=== PATIENT | female | born 1970 | race Caucasian/White ===

== ENCOUNTER 2019-06-01 13:50 | Outpatient (CLI) | payer BC, SELFPAY ==
--- NOTE | ~2019-06-01 | MM_ITS ---
EXAMINATION: MM screening [facility] w noem[facility] HISTORY: Screening mammogram TECHNIQUE: Craniocaudal and mediolateral oblique 3-D tomosynthesis images were obtained and synthetic 2-D images were generated. CAD analysis was submitted and interpreted. COMPARISON: 05/28/2018, 05/27/2017, 05/14/2016 BREAST PARENCHYMAL COMPOSITION: The breasts are heterogeneously dense, which may obscure small masses . FINDINGS: Scattered benign-appearing calcifications are present. There is no evidence of suspicious m ass, calcification, or architectural distortion to suggest malignancy in either breast. There has bee n no suspicious interval change. IMPRESSION: 1. No mammographic evidence of malignancy. 2. Recommend routine screening mammography in one year. BI-RADS Category 2: Benign finding(s). Reviewed, dictated and finalized at location A. TTER
== END 2019-06-01 13:51 | disposition home or self-care (01) ==
LOC: ANHIMG 13:56
DX: Z12.31 Encounter for screening mammogram for malignant neoplasm of breast (principal)
CPT/HCPCS: 77063; 77067

== ENCOUNTER 2020-07-09 15:55 | Outpatient (CLI) | payer BC, SELFPAY ==
--- NOTE | ~2020-07-09 | MM_ITS ---
EXAMINATION: MM screening [facility] BI w noemí HISTORY: Screening mammogram TECHNIQUE: Craniocaudal and mediolateral oblique 3-D tomosynthesis images were obtained and synthetic 2-D images were generated. CAD analysis was submitted and interpreted. COMPARISON: 06/01/2019, 05/28/2018, 05/27/2017 BREAST PARENCHYMAL COMPOSITION: The breasts are heterogeneously dense, which may obscure small masses . FINDINGS: There is no evidence of suspicious mass, calcification, or architectural distortion to sugg est malignancy in either breast. There has been no suspicious interval change. IMPRESSION: 1. No mammographic evidence of malignancy. 2. Recommend routine screening mammography in one year. BI-RADS Category 1: Negative Reviewed, dictated and finalized at location A.
== END 2020-07-09 15:56 | disposition home or self-care (01) ==
LOC: ANHIMG 15:57
PROVIDERS: PCP Internal Medicine; Visit Provider Internal Medicine
DX: Z12.31 Encounter for screening mammogram for malignant neoplasm of breast (principal)
CPT/HCPCS: 77063; 77067

== ENCOUNTER 2020-07-25 11:30 | Outpatient (CLI) | payer BC, SELFPAY | END 2020-07-25 11:31 | disposition home or self-care (01) | LOC: ANHCOVIDVC 11:30 | PROVIDERS: PCP Internal Medicine | DX: Z23 Encounter for immunization (principal) | CPT/HCPCS: 0001A; 91300 ==

== ENCOUNTER 2020-08-15 11:29 | Outpatient (CLI) | payer BC, SELFPAY | END 2020-08-15 11:30 | disposition home or self-care (01) | LOC: ANHCOVIDVC 11:29 | PROVIDERS: PCP Internal Medicine | DX: Z23 Encounter for immunization (principal) | CPT/HCPCS: 0002A; 91300 ==

== ENCOUNTER → 2021-03-12 08:59 | Outpatient (CLI) | payer OTHER, SELFPAY ==
[2021-03-12 13:20] LABS: Influenza Control Positive
[2021-03-12 20:05] LABS: SARS-CoV-2 RNA PCR Negative
== END ==
PROVIDERS: PCP Internal Medicine; Visit Provider Internal Medicine
DX: Z20.822 Contact with and (suspected) exposure to COVID-19 (principal)
CPT/HCPCS: 87804; C9803; U0003; U0005

== ENCOUNTER 2021-11-14 08:17 | Outpatient (CLI) | payer OTHER, SELFPAY ==
--- NOTE | ~2021-11-14 | MM_ITS ---
EXAMINATION: MM screening [facility] w noem[facility] HISTORY: Screening TECHNIQUE: Craniocaudal and mediolateral oblique 3-D tomosynthesis images were obtained and synthetic 2-D images were generated. CAD analysis was submitted and interpreted. COMPARISON: Comparison to multiple prior studies sequentially, with oldest reviewed study dated 04/2016. BREAST PARENCHYMAL COMPOSITION: The breasts are heterogenously dense, which may obscure small masses FINDINGS: There is no evidence of suspicious mass, calcification, or architectural distortion to sugg est malignancy in either breast. There has been no suspicious interval change. IMPRESSION: 1. No mammographic evidence of malignancy. 2. Recommend routine screening mammography in one year. BI-RADS Category 1: Negative Reviewed, dictated and finalized at location A.
== END 2021-11-14 08:18 | disposition home or self-care (01) ==
PROVIDERS: PCP Internal Medicine
DX: Z12.31 Encounter for screening mammogram for malignant neoplasm of breast (principal)
CPT/HCPCS: 77063; 77067

== ENCOUNTER 2023-03-11 08:32 | Outpatient (CLI) | payer OTHER, SELFPAY ==
--- NOTE | ~2023-03-11 | MM_ITS ---
EXAMINATION: MM screening [facility] w noemí HISTORY: Screening mammogram TECHNIQUE: Craniocaudal and mediolateral oblique 3-D tomosynthesis images were obtained and synthetic 2-D images were generated. CAD analysis was submitted and interpreted. COMPARISON: 11/2021, 07/09/2020, bilateral screening mammogram examinations BREAST PARENCHYMAL COMPOSITION: The breasts are heterogeneously dense, which may obscure small masses . FINDINGS: There is no evidence of suspicious mass, calcification, or architectural distortion to sugg est malignancy in either breast. There has been no suspicious interval change. IMPRESSION: 1. No mammographic evidence of malignancy. 2. Recommend routine screening mammography in one year. BI-RADS Category 1: Negative Reviewed, dictated and finalized at location A. ISTRY INTERN
--- NOTE | ~2023-03-11 | DEXA_ITS ---
Bone Density Report Name: SENA PHILIP Age: 52 Sex: Female Ethnicity: White Date of : 1970 Indication: postmenopausal; screening for osteoporosis; height loss; cancer; Referring Provider: UNKNOWN, UNKNOWN Study: Bone densitometry was performed. Exam Date: March 11, 2023 Accession number: [id number] Bone Density: Region BMD T-score Z-score Classification AP Spine(L1-L4) 1.281 2.1 3.0 Normal Femoral Neck (Left) 0.940 0.8 1.7 Normal Total Hip (Left) 1.101 1.3 1.9 Normal Femoral Neck (Right) 0.868 0.2 1.1 Normal Total Hip (Right) 1.149 1.7 2.3 Normal Total Hip Mean 1.125 1.5 2.1 Normal World Health Organization criteria for BMD impression classify patients as: Normal (T-score at or above -1.0), Osteopenia (T-score between -1.0 and -2.5), or Osteoporosis (T-score at or below -2.5). 10-year Fracture Risk: FRAX not reported because: All T-scores for Spine Total, Hip Total, Femoral Neck at or above -1.0 Clinical Information Provided by Patient: Has used the following medications: Vitamin D, Calcium Has the following medical conditions: Cancer Patient maximum height was 68 Menopause Age: 48 Drinks caffeinated beverages Onset of menses at age 12 Number of children 2 Impression: The patient has normal bone mass. Discussion: BONE DENSITY IS ABOVE THE MINIMUM DESIRABLE LEVEL AT ALL SKELETAL SITES TESTED. This patient?s bone mineral density is above the minimum desirable level (T-score -1.0 or better) at all sites measured. The patient should follow a healthful lifestyle (good nutrition with adequate calcium and vitamin D, and appropriate weight-bearing exercise). Follow-Up: Consider repeating this study in 5 years or sooner if there is some new clinical indication. Reported by: BONY on 03/11/2023 9:01:00 AM. Reviewed, dictated and finalized at location AHaylee COOMBS
== END 2023-03-11 08:33 | disposition home or self-care (01) ==
LOC: ANHIMG 08:37
PROVIDERS: PCP Internal Medicine
DX: Z12.31 Encounter for screening mammogram for malignant neoplasm of breast (principal); Z13.820 Encounter for screening for osteoporosis; Z78.0 Asymptomatic menopausal state
CPT/HCPCS: 77063; 77067; 77080

== ENCOUNTER 2024-02-18 15:03 | Outpatient (CLI) | payer OTHER, SELFPAY ==
--- NOTE | ~2024-02-18 | XR_ITS ---
AP view of the pelvis and AP and lateral views of the bilateral hips Clinical history: Pain Findings: No acute fracture or dislocation is seen. Osseous alignment is anatomic. There is mild dege nerative change of the left hip joint, with prominent bony spurring at the superolateral acetabular m argin. Right hip joint intact. Soft tissues are unremarkable. 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 Reviewed, dictated and finalized at location M. 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
== END 2024-02-18 15:04 | disposition home or self-care (01) ==
LOC: MICIMG 15:04
PROVIDERS: PCP Internal Medicine; Visit Provider Chiropractor
DX: M16.12 Unilateral primary osteoarthritis, left hip (principal); M25.551 Pain in right hip; M53.3 Sacrococcygeal disorders, not elsewhere classified
CPT/HCPCS: 73521

== ENCOUNTER 2024-05-13 07:27 | Outpatient (CLI) | payer OTHER, SELFPAY ==
--- NOTE | ~2024-05-13 | MM_ITS ---
EXAMINATION: MM screening jacobo BI w noemí HISTORY: Screening TECHNIQUE: Craniocaudal and mediolateral oblique 3-D tomosynthesis images were obtained and synthetic 2-D images were generated. CAD analysis was submitted and interpreted. COMPARISON: Comparison to multiple prior studies sequentially, with oldest reviewed study dated 05/27. BREAST PARENCHYMAL COMPOSITION: Not dense: There are scattered areas of fibroglandular density. FINDINGS: There is no evidence of suspicious mass, calcification, or architectural distortion to sugg est malignancy in either breast. There has been no suspicious interval change. IMPRESSION: 1. No mammographic evidence of malignancy. 2. Recommend routine screening mammography in one year. BI-RADS Category 1: Negative Reviewed, dictated and finalized at location A. [facility]
--- OUTSIDE RECORDS SUMMARY | 2024-05-13 07:35 | XMS_ITS | Data Portability ---
[facility] [address] [place] [address] Care Team Providers Care Architectural Practice Manager Name Role Phone JULIOCESAR HYDE Primary Care Provider Unavailab le Assessment Encounter Date Assessment Date Assessment LastModified by Organization Details LastModified Time 08/20/2023 08/20/2023 Mammogram UTD at [place] [facility] pap smear UTD: DR. Arriola at [facility] colonoscopy 2019. due for annual labs. [email or web address] Not available 08/20/2023 10:01:01 Plan of Treatment Reminders Order Date Submit Date Provider Last Modified By Organization Details Last Modified Time Details Appointments ANY 15 2024 08:00A M MINDY Ramirez Not available Not available Not available Lab TSH + free T4, serum 2023 024 ROJELIO [facility], [address], [address], [place], [address], 09/05/2023 11:13:22 CMP, serum or plasma 2023 024 ROJELIO Labma[facility], [address], [address], [place], [address], 09/05/2023 11:13:22 CBC w/ auto diff 2023 024 ROJELIO [facility], [address], [address], [place], [address], 09/05/2023 11:13:24 vitamin B12 + folate, serum or blood 2023 024 ROJELIO Labmuareen, [address], [address], [place], [address], 09/05/2023 11:13:23 lipid panel, serum 2023 024 [facility], [address], [address], [place], [address], 09/05/2023 11:13:21 HbA1c (hemoglob in A1c), blood 2023 024 [facility], [address] Andrie[address], [address], [place], [address], 09/05/2023 11:13:24 Referral None recorded. Procedures None recorded. Surgeries None recorded. Imaging None recorded. Medication Orders amlodipin e 2.5 mg tablet 2023 024 [id number], [address], [place], [id number], 03/01/2024 12:13:10 amlodipin e 2.5 mg tablet 2023 024 [id number], [address], [place], [id number], 03/01/2024 12:38:53 Patient TargetsNo targets recorded. Patient InstructionsNo instructions recorded. Reason for Referral None Reported. Results Created Date Observation Date Name Description Value Unit Range Abnormal Flag Note LastModifiedBy Organization Detail LastModifiedTime 09/04/1909/05/2023 LIPID PANEL W/ CHOL/ HDL RATIO cholesterol, total 212 mg/dL 100-19 9 above high normal Not Available [facility] ([facility]) [address], [place], [address], 09/05/2023 11:13:21 09/04/1909/05/2023 LIPID PANEL W/ CHOL/ HDL RATIO triglyceride s 85 mg/dL 0-149 Not Available [facility] ([facility]) [address] [facility] [address], [place], [address], 09/05/2023 11:13:21 09/04/19 24 09/05/2023 LIPID PANEL W/ CHOL/ HDL RATIO HDL cholesterol 62 mg/dL >39 Not Available [facility] ([facility]) [address] [place], [address], 09/05/2023 11:13:21 09/04/19 24 09/05/2023 LIPID PANEL W/ CHOL/ HDL RATIO VLDL cholesterol antonio 15 mg/dL 5-40 Not Available [facility] ([facility]) [address] [place], [address], 09/05/2023 11:13:21 09/04/1909/05/2023 LIPID PANEL W/ CHOL/ HDL RATIO LDL chol calc ([facility]) 135 mg/dL 0-99 above high normal Not Available [facility] ([facility]) [address] [place], [address], 09/05/2023 11:13:21 09/04/19 24 09/05/2023 LIPID PANEL W/ CHOL/ HDL RATIO T. chol/HDL ratio 3.4 ratio 0.0-4. 4 T. Chol/ HDL Ratio Men Women 1/2 Avg.R isk 3.4 3.3 Avg.R isk 5.0 4.4 2X Avg.R isk 9.6 7.1 3X Avg.R isk 23.4 11.0 Not Available [facility] ([facility]) [address] [place], [address], 09/05/2023 11:13:21 09/04/19 24 09/05/2023 TSH+F REE T4 TSH 1.080 uIU/m L 0.450- 4.500 Not Available [facility] ([facility]) [address] [place], [address], 09/05/2023 11:13:22 09/04/19 24 09/05/2023 TSH+F REE T4 T4,free(dire ct) 1.11 NG/dL 0.82-1 .77 Not Available [facility] ([facility]) [address] [facility] [address], [place], [address], 09/05/2023 11:13:22 09/04/19 24 09/05/2023 COMP. METAB OLIC PANEL (14) glucose 85 mg/dL 70-99 Not Available [facility] ([facility]) [address] [place], [address], 09/05/2023 11:13:22 09/04/19 24 09/05/2023 COMP. METAB OLIC PANEL (14) BUN 16 mg/dL 6-24 Not Available [facility] ([facility]) [address] [place], [address], 09/05/2023 11:13:22 09/04/19 24 09/05/2023 COMP. METAB OLIC PANEL (14) creatinine 0.75 mg/dL 0.57-1 .00 Not Available [facility] ([facility]) [address] [facility] [address], [place], [address], 09/05/2023 11:13:22 09/04/19 24 09/05/2023 COMP. METAB OLIC PANEL (14) eGFR 95 mL/mi n/1.7 3 >59 Not Available [facility] ([facility]) [address] [facility] [address], [place], [address], 09/05/2023 11:13:22 09/04/19 24 09/05/2023 COMP. METAB OLIC PANEL (14) BUN/creatini ne ratio 21 9-23 Not Available [facility] ([facility]) [address] [place], [address], 09/05/2023 11:13:22 09/04/19 24 09/05/2023 COMP. METAB OLIC PANEL (14) sodium 140 mmol/ L 134-14 4 Not Available [facility] ([facility]) [address] [place], [address], 09/05/2023 11:13:22 09/04/19 24 09/05/2023 COMP. METAB OLIC PANEL (14) potassium 4.8 mmol/ L 3.5-5. 2 Not Available [facility] ([facility]) [address] [facility] [address], [place], [address], 09/05/2023 11:13:22 09/04/19 24 09/05/2023 COMP. METAB OLIC PANEL (14) chloride 102 mmol/ L 96-106 Not Available [facility] ([facility]) [address] [facility] [address], [place], [address], 09/05/2023 11:13:22 09/04/19 24 09/05/2023 COMP. METAB OLIC PANEL (14) carbon dioxide, total 24 mmol/ L 20-29 Not Available [facility] ([facility]) [address] [place], [address], 09/05/2023 11:13:22 09/04/19 24 09/05/2023 COMP. METAB OLIC PANEL (14) calcium 9.8 mg/dL 8.7-10 .2 Not Available [facility] ([facility]) [address] [place], [address], 09/05/2023 11:13:22 09/04/19 24 09/05/2023 COMP. METAB OLIC PANEL (14) protein, total 6.9 g/dL 6.0-8. 5 Not Available [facility] ([facility]) [address] [facility] [place], [address], 09/05/2023 11:13:22 09/04/19 24 09/05/2023 COMP. METAB OLIC PANEL (14) albumin 4.6 g/dL 3.8-4. 9 Not Available [facility] ([facility]) [address] [facility] [place], [address], 09/05/2023 11:13:22 09/04/19 24 09/05/2023 COMP. METAB OLIC PANEL (14) globulin, total 2.3 g/dL 1.5-4. 5 Not Available [facility] ([facility]) [address] [place], [address], 09/05/2023 11:13:22 09/04/19 24 09/05/2023 COMP. METAB OLIC PANEL (14) A/G ratio 2.0 1.2-2. 2 Not Available [facility] ([facility]) [address] [place], [address], 09/05/2023 11:13:22 09/04/19 24 09/05/2023 COMP. METAB OLIC PANEL (14) bilirubin, total 0.3 mg/dL 0.0-1. 2 Not Available [facility] ([facility]) [address] [place], [address], 09/05/2023 11:13:22 09/04/19 24 09/05/2023 COMP. METAB OLIC PANEL (14) alkaline phosphatase 51 IU/L 44-121 Not Available [facility] ([facility]) [address] [place], [address], 09/05/2023 11:13:22 09/04/19 24 09/05/2023 COMP. METAB OLIC PANEL (14) AST (SGOT) 18 IU/L 0-40 Not Available [facility] ([facility]) [address] [place], [address], 09/05/2023 11:13:22 09/04/19 24 09/05/2023 COMP. METAB OLIC PANEL (14) ALT (SGPT) 17 IU/L 0-32 Not Available [facility] ([facility]) [address] [place], [address], 09/05/2023 11:13:22 09/04/19 24 09/05/2023 VITAM IN B12 AND FOLAT E vitamin B12 >2000 pg/mL 232-12 45 above high normal Not Available [facility] ([facility]) [address] [facility] [address], [place], [address], 09/05/2023 11:13:23 09/04/19 24 09/05/2023 VITAM IN B12 AND FOLAT E folate (folic acid), serum 17.9 NG/mL >3.0 A serum folat e bill ntrat ion of less than 3.1 ng/mL is consi dered to repre sent clini antonio defic iency . Not Available [facility] ([facility]) [address] [facility] [address], [place], [address], 09/05/2023 11:13:23 09/04/1909/05/2023 HEMOG LOBIN A1C hemoglobin A1C 5.5 % 4.8-5. 6 Predi abete s: 5.7 - 6.4 Diabe juliana: >6.4 Glyce dawood contr ol for adult s with diabe juliana: <7.0 Not Available [facility] ([facility]) [address] [facility] [address], [place], [address], 09/05/2023 11:13:23 09/04/19 24 09/05/2023 CBC WITH DIFFE RENTI AL/PL ATELE T WBC 4.5 x10e3 /uL 3.4-10 .8 Not Available [facility] ([facility]) [address] [place], [address], 09/05/2023 11:13:24 09/04/19 24 09/05/2023 CBC WITH DIFFE RENTI AL/PL ATELE T RBC 4.20 x10e6 /uL 3.77-5 .28 Not Available [facility] ([facility]) [address] [place], [address], 09/05/2023 11:13:24 09/04/19 24 09/05/2023 CBC WITH DIFFE RENTI AL/PL ATELE T hemoglobin 13.8 g/dL 11.1-1 5.9 Not Available [facility] ([facility]) [address] [facility] [address], [place], [address], 09/05/2023 11:13:24 09/04/19 24 09/05/2023 CBC WITH DIFFE RENTI AL/PL ATELE T hematocrit 41.5 % 34.0-4 6.6 Not Available [facility] ([facility]) [address] [facility] [address], [place], [address], 09/05/2023 11:13:24 09/04/19 24 09/05/2023 CBC WITH DIFFE RENTI AL/PL ATELE T MCV 99 fL 79-97 above high normal Not Available [facility] ([facility]) [address] [facility] [address], [place], [address], 09/05/2023 11:13:24 09/04/19 24 09/05/2023 CBC WITH DIFFE RENTI AL/PL ATELE T MCH 32.9 pg 26.6-3 3.0 Not Available [facility] ([facility]) [address] [facility] [address], [place], [address], 09/05/2023 11:13:24 09/04/19 24 09/05/2023 CBC WITH DIFFE RENTI AL/PL ATELE T MCHC 33.3 g/dL 31.5-3 5.7 Not Available [facility] ([facility]) [address] [facility] [address], [place], [address], 09/05/2023 11:13:24 09/04/19 24 09/05/2023 CBC WITH DIFFE RENTI AL/PL ATELE T RDW 12.7 % 11.7-1 5.4 Not Available [facility] ([facility]) [address] [facility] [address], [place], [address], 09/05/2023 11:13:24 09/04/19 24 09/05/2023 CBC WITH DIFFE RENTI AL/PL ATELE T platelets 269 x10e3 /uL 150-45 0 Not Available [facility] ([facility]) [address] [facility] [address], [place], [address], 09/05/2023 11:13:24 09/04/19 24 09/05/2023 CBC WITH DIFFE RENTI AL/PL ATELE T neutrophils 50 % notest ab. Not Available [facility] ([facility]) [address] [facility] [address], [place], [address], 09/05/2023 11:13:24 09/04/19 24 09/05/2023 CBC WITH DIFFE RENTI AL/PL ATELE T lymphs 40 % notest ab. Not Available [facility] ([facility]) [address] [facility] [address], [place], [address], 09/05/2023 11:13:24 09/04/19 24 09/05/2023 CBC WITH DIFFE RENTI AL/PL ATELE T monocytes 10 % notest ab. Not Available [facility] ([facility]) [address] [facility] [address], [place], [address], 09/05/2023 11:13:24 09/04/19 24 09/05/2023 CBC WITH DIFFE RENTI AL/PL ATELE T eos 0 % notest ab. Not Available [facility] ([facility]) [address] [facility] [address], [place], [address], 09/05/2023 11:13:24 09/04/19 24 09/05/2023 CBC WITH DIFFE RENTI AL/PL ATELE T basos 0 % notest ab. Not Available [facility] ([facility]) [address] [facility] [address], [place], [address], 09/05/2023 11:13:24 09/04/19 24 09/05/2023 CBC WITH DIFFE RENTI AL/PL ATELE T neutrophils (absolute) 2.2 x10e3 /uL 1.4-7. 0 Not Available [facility] ([facility]) [address] [facility] [address], [place], [address], 09/05/2023 11:13:24 09/04/19 24 09/05/2023 CBC WITH DIFFE RENTI AL/PL ATELE T lymphs (absolute) 1.8 x10e3 /uL 0.7-3. 1 Not Available [facility] ([facility]) [address] [facility] [address], [place], [address], 09/05/2023 11:13:24 09/04/19 24 09/05/2023 CBC WITH DIFFE RENTI AL/PL ATELE T monocytes(ab solute) 0.5 x10e3 /uL 0.1-0. 9 Not Available [facility] ([facility]) [address] [facility] [address], [place], [address], 09/05/2023 11:13:24 09/04/19 24 09/05/2023 CBC WITH DIFFE RENTI AL/PL ATELE T eos (absolute) 0.0 x10e3 /uL 0.0-0. 4 Not Available [facility] ([facility]) [address] [facility] [address], [place], [address], 09/05/2023 11:13:24 09/04/19 24 09/05/2023 CBC WITH DIFFE RENTI AL/PL ATELE T baso (absolute) 0.0 x10e3 /uL 0.0-0. 2 Not Available [facility] ([facility]) [address] [facility] [address], [place], [address], 09/05/2023 11:13:24 09/04/19 24 09/05/2023 CBC WITH DIFFE RENTI AL/PL ATELE T immature granulocytes 0 % notest ab. Not Available [facility] ([facility]) [address] [facility] [address], [place], [address], 09/05/2023 11:13:24 09/04/19 24 09/05/2023 CBC WITH DIFFE RENTI AL/PL ATELE T immature grans (abs) 0.0 x10e3 /uL 0.0-0. 1 Not Available [facility] ([facility]) [address] [facility] [address], [place], [address], 09/05/2023 11:13:24 Result Notes None recorded. Problems Name Problem SNOMED Code Status Onset Date Resolution Date Notes Provider Name and Address Organization Details Recorded Time Vertigo 675574885 Active 2023 MINDY Ramirez Attn: Araceli meredith,[address], [place], [address], [facility] 4 23:20:04 Elevated blood-pressure reading without diagnosis of hypertension 351927523 Active 2023 MINDY Ramirez Attn: Araceli meredith,[address], [place], [address], [facility] 4 23:20:05 Long-term drug therapy Active 2023 MINDY Ramirez Attn: Araceli meredith,[address], [place], [address], [facility] 4 18:52:41 Problem Notes None recorded. Medical Equipment None Reported. Allergies No known drug allergies Medications Name Sig Start Date Stop Date Status Note LastModified by Organization Details LastModified Time famotidine 40 mg tablet Take 1 tablet every day by oral route for 90 days. active acid reflux Not Available Not Available Not Available amlodipine 2.5 mg tablet TAKE 1 TABLET BY MOUTH EVERY DAY 2024 active Not Available Not Available Not Avai lable ciclopirox 8 % topical solution APPLY TO TOENAILS EVERY DAY 08/19 completed Not Available Not Available Not Available amoxicilli n 875 mg tablet TAKE 1 TABLET BY MOUTH EVERY 12 HOURS 03/01 completed Not Available Not Available Not Available meclizine 25 mg tablet TAKE 1 TABLET BY MOUTH THREE TIMES DAILY NEEDED FOR VERTIGO active Not Available Not Available No t Available cephalexin 500 mg capsule TAKE 1 CAPSULE BY MOUTH TWICE DAILY 08/19 completed Not Available Not Available Not Available ketoconazo le 2 % topical cream APPLY TO THE AFFECTED AREA ON FEET TWICE DAILY FOR 3 WEEKS NEEDED 08/19 completed Not Available Not Available Not Available Vitals Date Recorded Body height Provider Name an d Address Organization Details Last Updated DateTime 08/20/2023 170.18 cm Emelina Gunderson MA [facility] 2023 09:29:24 Date Recorded Respiratory rate Provider Name a nd Address Organization Details Last Updated DateTime 08/20/2023 20 /min Emelina Gunderosn MA [facility] 08/20/2023 09:29:26 Date Recorded Body mass index (BMI) Body weight Provider Name and Address Organization Details Last Updated DateTime 08/20/2023 23 kg/m2 59636.51 g Emelina Gunderson MA [facility] 08/20/2023 09:29:30 Date Recorded Oxygen saturation Oxygen saturation in Arterial blood by Pulse oximetry Provider Name and Address Organization Details Last Updated DateTime 08/20/2023 99 % 99 % Emelina Gunderson MA [facility] 08/20/2023 09:31:35 Date Recorded Heart rate Provider Name an d Address Organization Details Last Updated DateTime 08/20/2023 70 /min Emelina Gunderson MA [facility] 2023 09:31:36 Date Recorded Body height Provider Name an d Address Organization Details Last Updated DateTime 08/31/2023 170.18 cm Cierra Bailey MA [facility] 16:13:13 Date Recorded Body mass index (BMI) Body weight Provider Name and Address Organization Details Last Updated DateTime 08/31/2023 23.2 kg/m2 28226.39 g Cierra LeoBLAS barton [facility] 0 08/31/2023 16:14:54 Date Recorded Heart rate Provider Name an d Address Organization Details Last Updated DateTime 08/31/2023 65 /min Cierra LeoBLAS barton [facility] 16:18:11 Date Recorded Oxygen saturation Oxygen saturation in Arterial blood by Pulse oximetry Provider Name and Address Organization Details Last Updated DateTime 08/31/2023 99 % 99 % Cierra Bailey MA [facility] 08/31/2023 16:18:14 Date Recorded Respiratory rate Provider Name a nd Address Organization Details Last Updated DateTime 09/13/2023 18 /min MINDY Ramirez Attn: Accounting,[address] [place], [address], [facility] 09/13/2023 23:17:50 Date Recorded Body height Provider Name an d Address Organization Details Last Updated DateTime 03/01/2024 170.18 cm Emelina Gunderson MA [facility] 2023 12:06:29 Date Recorded Body mass index (BMI) Body weight Provider Name and Address Organization Details Last Updated DateTime 03/01/2024 22.9 kg/m2 50837.49 g Emleina Gunderson MA [facility] 03/01/2024 12:12:22 Date Recorded Respiratory rate Provider Name a nd Address Organization Details Last Updated DateTime 03/01/2024 18 /min Emelina Gunderson MA [facility] 03/01/2024 12:12:51 Date Recorded Oxygen saturation Oxygen saturation in Arterial blood by Pulse oximetry Provider Name and Address Organization Details Last Updated DateTime 03/01/2024 97 % 97 % Emelina Gunderson MA [facility] 03/01/2024 12:15:35 Date Recorded Heart rate Provider Name an d Address Organization Details Last Updated DateTime 03/01/2024 88 /min Emelina Gunderson MA [facility] 2023 12:15:36 Date Recorded Systolic blood pressure Diastolic blood pressure Provider Name and Address Organization Details Last Updated DateTime 08/20/2023 128 mm[Hg] 82 mm[Hg] Emelina Gunderson MA [facility] 08/20/2023 09:32:40 Date Recorded Systolic blood pressure Diastolic blood pressure Provider Name and Address Organization Details Last Updated DateTime 08/20/2023 130 mm[Hg] 90 mm[Hg] MINDY Ramirez Attn: Accounting,[address] [place], [address], [facility] 08/20/2023 10:03:18 Date Recorded Systolic blood pressure Diastolic blood pressure Provider Name and Address Organization Details Last Updated DateTime 08/20/2023 132 mm[Hg] 90 mm[Hg] MINDY Ramirez Attn: Accounting,[address] [place], [address], [facility] 08/20/2023 10:03:25 Date Recorded Systolic blood pressure Diastolic blood pressure Provider Name and Address Organization Details Last Updated DateTime 08/31/2023 150 mm[Hg] 86 mm[Hg] Cierra Bailey MA [facility] 08/31/2023 16:17:44 Date Recorded Systolic blood pressure Diastolic blood pressure Provider Name and Address Organization Details Last Updated DateTime 08/31/2023 150 mm[Hg] 90 mm[Hg] MINDY Ramirez Attn: Accounting,[address] [place], [address], [facility] 08/31/2023 16:46:41 Date Recorded Systolic blood pressure Diastolic blood pressure Provider Name and Address Organization Details Last Updated DateTime 08/31/2023 140 mm[Hg] 90 mm[Hg] MINDY Ramirez Attn: Accounting,[address] [place], [address], [facility] 08/31/2023 16:46:49 Date Recorded Systolic blood pressure Diastolic blood pressure Provider Name and Address Organization Details Last Updated DateTime 03/01/2024 138 mm[Hg] 82 mm[Hg] Emelina Gunderson MA [facility] 03/01/2024 12:17:22 Date Recorded Systolic blood pressure Diastolic blood pressure Provider Name and Address Organization Details Last Updated DateTime 03/01/2024 98 mm[Hg] 70 mm[Hg] MINDY Ramirez Attn: Accounting,[address] [place], [address], [facility] 03/01/2024 12:38:08 Date Recorded Systolic blood pressure Diastolic blood pressure Provider Name and Address Organization Details Last Updated DateTime 03/01/2024 110 mm[Hg] 80 mm[Hg] MINDY Ramirez Attn: Accounting,[address] [place], [address], [facility] 03/01/2024 12:38:23 Social History Question Answer Notes LastModified by Organizat ion Details LastModified Time Tobacco Smoking Status Never Smoker Emelina Gunderson MA null, [facility] 08/19/2023 10:23:15 Do You Have An Advance Directive? Yes Information not available 08/19/2023 What Is Your Level Of Alcohol Consumption? Occasional Information not available 08/19/2023 Are You Blind Or Do You Have Difficulty Seeing? No Information not available 08/19/2023 What Is Your Level Of Caffeine Consumption? Moderate Coffee Information not available 08/19/2023 In The 14 Days Before Symptom Onset, Have You Had Close Contact With A Laboratory-confir med COVID-19 While That Case Was Ill? No Information not available 08/19/2023 In The 14 Days Before Symptom Onset, Have You Had Close Contact With A Person Who Is Under Investigation For COVID-19 While That Person Was Ill? No Information not available 08/19/2023 Have You Been To An Area Known To Be High Risk For COVID-19? No Information not available 08/19/2023 Are You Currently Employed? Yes Information not available 08/19/2023 Are You Deaf Or Do You Have Serious Difficulty Hearing? No Information not available 08/19/2023 What Type Of Diet Are You Following? 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 No Information not available 08/19/2023 What Was The Date Of Your Most Recent Tobacco Screening? 03/01/2024 Information not available 03/01/2024 What Is Your Relationship Status? Information not available 08/19/2023 Do You Use Your Seat Belt Or Car Seat Routinely? Yes Information not available 08/19/2023 Do You Have Smoke And Carbon Monoxide Detectors In Your Home? Yes Information not available 08/19/2023 Do You Feel Stressed (tense, Restless, Nervous, Or Anxious, Or Unable To Sleep At Night)? AS3106-4 Information not available 08/19/2023 Do You Use Any Illicit Or Recreational Drugs? No Information not available 08/19/2023 Do You Use Sunscreen Routinely? Yes Information not available 08/19/2023 Has Tobacco Cessation Counseling Been Provided? Yes Information not available 08/19/2023 On What Date Was Tobacco Cessation Counseling Provided? 03/01/2024 Information not available 03/01/2024 Do You Or Have You Ever Used Any Other Forms Of Tobacco Or Nicotine? No Information not available 08/19/2023 Sex: Female Functional Status Question Answer Note LastModified by Organization D etails LastModified Time Are you able to care for yourself? Yes Information not available 08/19/2023 What is your exercise level? Moderate Information not available 08/19/2023 Mental Status None recorded. Family History Relationship Description Onset Age of this Age Resolved Age Notes LastModified by Organization Details LastModified Time Mother Diabetes mellitus [email or web address] Not available 2023 10:35:11 Mother Hypercholest erolemia [email or web address] Not available 2023 10:35:15 Father Diabetes mellitus [email or web address] Not available 2023 10:35:11 Father Malignant tumor of prostate [email or web address] Not available 2023 10:35:23 Medical History Condition Response Coronary Artery Disease N Other N Atrial Fibrillation N High Blood Pressure N Depression N COPD N Blood Clots N Anxiety Disorder N Muscle, Joint, or Bone Problems N Acid Reflux (GERD) Y Cancer Y Stroke N High Cholesterol Y Liver Disease N Headaches N Kidney or Bladder Problems N Thyroid Problems N GI Problems Y Skin Problems N Anemia N Heart Attack ([place]) N Diabetes N Seizures/Epilepsy N Asthma N Allergies Y Hepatitis N Heart Failure N Osteoporosis N Gynecological History Statement/Question Response Menses Monthly N Current Control Method Other Obstetrics History GPAL:G 2 P 2 0 0 2 Type Value Full Term 2 Induced 0 Spontaneous 0 Premature 0 Living 2 Total 2 Immunizations Vaccine Type Date Status Note Provider Nam e and Address Organization Details Recorded Time COVID-19, mRNA, LNP-S, PF, 30 mcg/0.3 mL dose 07/25/2020 completed Emelina Gunderson [place], [place] - [facility] 03/01/2024 12:06:41 COVID-19, mRNA, LNP-S, PF, 30 mcg/0.3 mL dose 08/15/2020 kia Gunderson, MA pipo, [place] - [facility] 03/01/2024 12:06:41 Tdap 02/06/2017 completed Emelina Gunderson MA pipo, [place] - [facility] 03/01/2024 12:06:42 Influenza, split virus, quadrivalent, PF 02/06/2017 completed Emelina Gunderson MA pipo, [place] - [facility] 03/01/2024 12:06:42 Past Encounters Encounter ID Performer Location Encounter Start Date Encounter Closed Date Diagnosis/Indication Diagnosis SNOMED-CT Code Diagnosis ICD10 Code Diagnosis Note [id number] MINDY Ramirez [facility] [address] [place] [address] 08/20/2023 09:22:02 08/20/2023 10:44:33 Adult health examination 594811143 Z00.00 new pt wellness exam completed. Perimenopausal state 734 1710439 78453 Z78.0 hx noted. Cholesterol screening 27 8749921 Z13.220 fasting lipids ordered for evaluation . Diabetes m ellitus screening 496958544 Z13.1 a1c screening ordered Thyroid di sorder screening 408673935 Z13.29 thyroid function panel ordered. Long-term drug therapy 273702827 Z79.899 cmp, cbc and b12, folate labs are due [id number] MINDY Ramirez [facility] [address] [place] [address] 08/31/2023 16:07:51 08/31/2023 17:16:10 Elevated blood-pressure reading without diagnosis of hypertension 729593948 R03.0 Start low dose amlodipine 2.5mg daily. bp 140/90 today Vertigo 470776135 R42 pt can use the meclizine 25mg tid PRN that was sent out last week. [id number] MINDY Ramirez [facility] [employer] [address] [place] [address] 03/01/2024 12:05:28 03/01/2024 13:47:12 Elevated blood-pressure reading without diagnosis of hypertension 680323150 R03.0 Continue amlodipine 2.5 mg daily. Refill given today. Blood pressure is quite stable at 110/80. Long-term drug therapy 214690712 Z79.899 Labs are up-to-date . Follow-up again in 6 months for her wellness Health Concerns Section Related Observation LastModified by Organization Alex alexandra LastModified Time None Recorded Concern Status LastModified by Organization Details LastModified Time None Recorded Advance Directives Directive Y: Payers Encounter Date Sequence Insurance Name Policy Number Policy Wayne Covered Member ID Wayne Member ID Guarantor Name 08/20/2023 1 [facility] [id number] Socorro Dacosta [id number] Socorro Dacosta 08/31/2023 1 [facility] [id number] Socorro Burnss [id number] Socorro Dacosta 03/01/2024 1 [facility] [id number] Socorro Dacosta [id number] Socorro Dacosta Notes Date Note Type Note Provider Name and Address Organization Details Recorded Time 4 text/html pt is here to establish care with new PCP. she is in perimenopause. has no other complaints. she is due for labs. MINDY Ramirez Attn: Accounting[address] [place], [address], [facility] 09/07/2023 22:12:45 4 text/html DizzinessReported bypatient.Notes:pt has onset of dizziness/vertigo type symptoms recently. room does spin and with movements. she also feels her BP is elevated. she is here for evaluation. was just seen this month as new pt and all was stable at that time. MINDY Ramirez Attn: Accounting,[address] [facility], [place], [address], [facility] 09/13/2023 23:20:28 4 text/html HypertensionReported bypatient.Notes:Patient is here for follow-up on blood pressure. She has been taking low-dose amlodipine 2.5 mg daily. Home readings have been falling into normal parameters and she has no problems tolerating medication. MINDY Ramirez Attn: Accounting,[address] [facility], [place], [address], [facility] 03/12/2024 18:53:18 OBGyn Episode No OBEpisode recorded.
== END 2024-05-13 07:28 | disposition home or self-care (01) ==
LOC: ANHIMG 07:31
PROVIDERS: PCP Physician Assistant
DX: Z12.31 Encounter for screening mammogram for malignant neoplasm of breast (principal)
CPT/HCPCS: 77063; 77067